=== PATIENT | female | born 1980 | race Caucasian/White ===

== ENCOUNTER 2016-10-22 23:38 | Emergency (ER) | payer OTHER ==
--- NOTE | 2016-10-23 02:04 | ED ORDER SUMMARY ---
..... Patient: RADHA PICKETT OrderSheet [facility] VisitID: [id number] [place] [address] 36y, F Registration Date/Time: 10/22/2016 ORDER SHEET Weight: 95.7 kg (stated) Allergies: Metformin, Flu Virus Vaccine GENERAL ORDERS: EKG - ER Stat (23:56 10/22/2016 DDavis R.N. per protocol) (Ack 23:59 IJurca ER Tech1) (Cancelled: Duplicate Order0:00 DDavis R.N.) Chest 2V Urgent (:56 10/22/2016 PHutchinson DO) (Ack 23:59 IJurca ER Tech1) Music Engraver (Continuous) (:56 10/22/2016 PHutchinson DO) (Ack 23:59 IJurca ER Tech1) (0:00 DDavis R.N.) UA-Culture if indicated Urgent (:56 10/22/2016 PHutchinson DO) (Ack 23:59 IJurca ER Tech1) (1:15 JRomanelli R.N.) (Sent 1:15 IJurca ER Tech1) Cardiac Panel Stat (:56 10/22/2016 PHutchinson DO) (Ack 23:59 IJurca ER Tech1) (0:13 DDavis R.N.) BNP Urgent (:56 10/22/2016 PHutchinson DO) (Ack 23:59 IJurca ER Tech1) (0:13 DDavis R.N.) D-Dimer Urgent (:56 10/22/2016 PHutchinson DO) (Ack 23:59 IJurca ER Tech1) (0:13 DDavis R.N.) Amylase Urgent (:56 10/22/2016 PHutchinson DO) (Ack 23:59 IJurca ER Tech1) (0:13 DDavis R.N.) PT with INR Urgent (:56 10/22/2016 PHutchinson DO) (Ack 23:59 IJurca ER Tech1) (0:13 DDavis R.N.) Urine Urgent (:56 10/22/2016 [facility] DO) (Ack 23:59 IJurca ER Tech1) (1:15 JRomanelli R.N.) (Sent 1:15 IJurca ER Tech1) Urine Drug Screen Urgent (23:56 10/22/2016 [facility] DO) (Ack 23:59 IJurca ER Tech1) (Sent 1:15 IJurca ER Tech1) (1:19 DDavis R.N.) TSH Urgent (23:56 10/22/2016 [facility] DO) (Ack 23:59 IJurca ER Tech1) (0:13 DDavis R.N.) Pulse oximeter (:56 10/22/2016 [facility] DO) (Ack 23:59 IJurca ER Tech1) (0:00 DDavis R.N.) EKG - ER Stat (:56 10/22/2016 [facility]) (23:59 CHategekimana) (Ack 23:59 IJurca ER Tech1) Vitals (:56 10/22/2016 [facility] DO) (Ack 23:59 IJurca ER Tech1) (0:00 DDavis R.N.) [place] Level Urgent (00:10/23/2016 [facility] DO) (0:14 DDavis R.N.) Troponin-I (repeat now) Urgent (01:23 10/23/2016 [facility]) (Ack 1:31 IJurca ER Tech1) (1:50 DDavis R.N.) MEDICATION ORDERS: Aspirin PO 325 mg (NOW) (23:56 10/22/2016 [facility] DO) (0:14 DDavis R.N.) GI Cocktail WHITE PO 30 mL with Lidocaine Viscous Mouth/Throat 15 mL, Maalox Plus Oral 15 mL (NOW) (:56 10/22/2016 [facility] DO) (0:16 DDavis R.N.) Regular Insulin Subcut 8 units (HIGH ALERT MEDICATION, NOW) (01:05 10/23/2016 [facility]) (Ack 1:19 RCollier R.N.) (1:43 DDavis R.N.) IV FLUIDS: IV NS : initial bolus 1000 mL (1000 mL/hr), then 500 mL/hr for X2 (NOW) (23:56 10/22/2016 [facility]) (0:15 Robert Reza) ORDER SHEET NOTES: [Electronically signed by Abbey Rincon R.N. (02:10/23/2016)] [Electronically signed by Thierry Chicas DO (03:41 10/23/2016)] [Electronically locked/signed by Abbey Rincon R.N. (:10/23/2016)]
--- NOTE | 2016-10-23 02:04 | ED CLINICAL REPORT ---
Clinical Report - Physicians/Mid Levels [facility] [address] [place] [address] 10/22/2016 23:39 Patient: RADHA PICKETT Time Seen: 23:48. Arrived- By private vehicle. Historian- patient and family. HISTORY OF PRESENT ILLNESS Chief Complaint: CHEST DISCOMFORT. It is described as dull and it is described as located in the central chest area and radiating to the right upper back (possibly to right arm - states right arm feels numb). This started about 10 hours ago and is still present. It was gradual in onset and has been waxing/waning. Onset during light activity. At its maximum, severity described as moderate. When seen in the E.D., severity described as moderate. Modifying factors. Not worsened by anything. Not relieved by anything. No nausea, vomiting, difficulty breathing or diaphoresis. Similar symptoms previously: None. Recent medical care: The patient was seen recently at another facility in a clinic. Seen for other problems. ( has chronic pelvic pain and DUB - recent pap smear). REVIEW OF SYSTEMS No fever, chills, cough, pedal edema or calf pain. No fainting episodes, headache, sore throat, black stools or difficulty with urination. No skin rash, enlarged lymph nodes or bloody stools. All systems otherwise negative, except as recorded above. PAST HISTORY See nurses notes. Type II diabetes mellitus treated with insulin. 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 No history of aortic disease or pulmonary embolism. Mental illness. ( Chronic pelvic pain and dysfunctional bleeding - scheduled for hysterectomy in the near future ([facility])). Medications: Insulin: Novalog. Wellbutrin Oral. Aristes Oral. Lantus Subcutaneous. Allergies: Flu Virus Vaccine. Metformin. SOCIAL HISTORY Never smoker. No alcohol use or drug use. Residence: [place]. ADDITIONAL NOTES The nursing notes have been reviewed. PHYSICAL EXAM Vital Signs: 10/22/2016 23:49 BP: 133/77. HR: 77. RR: 15. O2 saturation: 100%. Temp: 98.5 F. Pain level now: 8/10. Appearance: Alert. Oriented X3. No acute distress. Eyes: Pupils equal, round and reactive to light. Eyes normal inspection. No scleral icterus or pale conjunctivae. ENT: Pharynx normal. Neck: Normal inspection. Neck supple. CVS: Normal heart rate and rhythm. Heart sounds normal. Pulses normal. Respiratory: No respiratory distress. Breath sounds normal. Chest nontender. Abdomen: Soft and nontender. No mass. Back: Normal external inspection. Skin: Skin warm and dry. Normal skin color. Normal skin turgor. Extremities: Extremities exhibit normal ROM. No calf tenderness. No lower extremity edema. Neuro: Oriented X 3. No motor deficit. No sensory deficit. LABS, X-RAYS, AND EKG EKG: EKG time: (23:58). Normal sinus rhythm. Rate: 75. Normal P waves. Normal CORI. Normal QRS complex. Normal axis. Normal ST and T waves. The study has been interpreted contemporaneously by me. The EKG appears to be a good tracing. Rhythm Strip #1: Normal sinus rhythm. Regular rhythm. Narrow QRS complexes. No ectopy. Chest X-ray: No acute disease. Normal lung markings present. Normal heart size. Mediastinum normal. Great vessels normal. No infiltrate. Views: PA and lateral. Technique: good. The X-rays were interpreted contemporaneously by me. Laboratory Tests: UA-Culture if indicated: (CHELLY: 10/23/2016 01:03) ( MsgRcvd 10/23/2016 01:25) Final results Test Result Flag Units (Reference) URINE COLOR YELLOW URINE APPEARANCE CLEAR URINE GLUCOSE 3+ (NEGATIVE) URINE BILIRUBIN NEGATIVE (NEGATIVE) URINE KETONE NEGATIVE (NEGATIVE) URINE SPECIFIC GRAVITY 1.010 (1.010-1.030) URINE PH 6.0 (5.0-8.0) URINE PROTEIN NEGATIVE (NEGATIVE) URINE UROBILINOGEN 0.2 EU/dL (0.2-1.0) URINE NITRITE NEGATIVE (NEGATIVE) URINE BLOOD NEGATIVE (NEGATIVE) URINE LEUK ESTERASE NEGATIVE (NEGATIVE) URINE RBC 0-1 rbc/hpf (0-1) URINE WBC 0-1 wbc/hpf (0-1) URINE EPITHELIAL CELLS 0-1 EPI/hpf (0-5) URINE BACTERIA NONE SEEN (NONE SEEN) FEW YEAST URINE COMMENT CULTURE INDICATED URINE CULTURES ARE SET-UP BASED ON THE FOLLOWING CRITERIA:POSITIVE NITRITEPOSITIVE LEUKOCYTE ESTERASEGREATER THAN 10 WHITE BLOOD CELLSMODERATE (2+) OR GREATER BACTERIA Urine: (CHELLY: 10/23/2016 01:03) ( [facility] Final results Test Result Flag Units (Reference) URINE NEGATIVE CBC w Diff: (CHELLY: 10/23/2016 00:09) ( [facility] Final results Test Result Flag Units (Reference) WHITE BLOOD COUNT 8.3 K/uL (4.5-11.5) RED BLOOD COUNT 4.51 M/uL (4.00-5.20) HEMOGLOBIN 12.8 gm/dL (12.0-16.0) HEMATOCRIT 38.2 % (36.0-46.0) MEAN CELL VOLUME 85 fL (80-100) MEAN CORPUSCULAR HGB 28 pg (26-34) MEAN CORPUSCULAR HGB CONC 33 g/dL (31-37) RED CELL DISTRIBUTION WIDTH 12.9 % (11.6-14.8) PLATELET COUNT 264 K/uL (150-400) NEUTROPHIL % 59.1 % (50-75) LYMPH % 31.2 % (25-40) MONO % 8.2 % (3-14) EOSINOPHIL % 0.7 % (0-4) BASOPHIL % 0.8 % (0-2) PT with INR: (CHELLY: 10/23/2016 00:09) ( [facility]35) Final results Test Result Flag Units (Reference) INR 0.9 (0.8-1.2) Low Intensity Therapy: INR 1.5-2.0 PT range 18.5-23.1Mod.Intensity Therapy: INR 2.0-3.0 PT range 23.1-31.5High Intensity Therapy: INR 2.5-3.5 PT range 27.4-35.5High Intensity Therapy 2: INR 3.0-4.0 PT range 31.5-39.3 D-DIMER QUANTITATIVE < 0.27 L ug/mLFEU (0.27-0.52) The primary value of this quantitative assay relates toits negative predictive value (i.e. exclusion) of pulmonaryembolism/deep vein thrombosis/DIC.Elevated levels of d-dimer may also occur with:, age, cancer, inflammation, liver disease,post-op, infection, hematoma, coronary disease, peripheralarteriopathy, bleeding disorders and thrombolytic treatment.Results should be correlated with other clinical andradiological data.Testing Methodology: Latex Immunoassay Troponin-I: (CHELLY: 10/23/2016 01:35) ( [facility] 10/23/2016 01:59) Final results Test Result Flag Units (Reference) TROPONIN I <0.05 L ng/mL (0.00-1.5) TROPONIN REFERENCE RANGE:<0.1 NEGATIVE0.1-1.5 INDETERMINANT>1.5 POSITIVE Urine Drug Screen: (CHELLY: 10/23/2016 01:03) ( [facility] 10/[facility]/2016 01:40) Final results Test Result Flag Units (Reference) AMPHETAMINE/METHAMPHETAMINE NEGATIVE (NEGATIVE) BARBITURATE NEGATIVE (NEGATIVE) BENZODIAZEPINE NEGATIVE (NEGATIVE) CANNABINOID NEGATIVE (NEGATIVE) COCAINE NEGATIVE (NEGATIVE) ECSTASY NEGATIVE (NEGATIVE) METHADONE NEGATIVE (NEGATIVE) OPIATE NEGATIVE (NEGATIVE) The urine drug screen is a qualitative screening test fordrug overdose and abuse. All screen results should beconsidered as presumptive.Drugs screened for are as follows:BenzodiazepinesCocaineAmphetamines/MetamphetaminesTHC (Tetrahydrocannabinol)OpiatesBarbituratesEcstasyMethadonePositive results are unconfirmed. For confirmation, notifythe lab for the specimen to be sent to the reference lab.All confirmations must be performed by a differentmethodology.The ingestion of natural herbal and plant productscontaining Ephedra/Ephedra metabolites can produce in urineone or more substances capable of cross reacting withamphetamine/methamphetamine immunoassays. These testsprovide a preliminary result only. A more specificalternative chemical method must be used to obtain aconfirmed analytical result. BNP: (CHELLY: 10/23/2016 00:09) ( MsgRcvd 10/23/2016 00:36) Final results Test Result Flag Units (Reference) B-TYPE NATRIURETIC PEPTIDE 7.1 pg/ml (5-100) Amylase: (CHELLY: 10/23/2016 00:09) ( MsgRcvd 10/23/2016 00:44) Final results Test Result Flag Units (Reference) AMYLASE 25 U/L (25-115) THYROID STIMULATING HORMONE 1.818 uIU/mL (0.34-3.74) CHEM 13 PANEL: (CHELLY: 10/23/2016 00:09) ( [facility]:34) Final results Test Result Flag Units (Reference) GLUCOSE 436 H mg/dL (70-110) BUN 14 mg/dL (7-18) CREATININE 0.7 mg/dL (0.6-1.3) Estimated GFR >60 mL/min Estimated GFR- >60 mL/min Note: Persistent reduction over 3 months in eGFR<60 mL/min/1.73 m2 defines CKD. Patients with eGFR values>=60 mL/min/1.73 m2 may also have CKD if evidence ofpersistent proteinuria. Additional information may be foundat www.kidney.org. SODIUM 133 L mmol/L (136-145) POTASSIUM 5.0 mmol/L (3.5-5.1) CHLORIDE 99 mmol/L (98-107) CARBON DIOXIDE 25 mmol/L (21-32) CALCIUM 9.4 mg/dL (8.5-10.1) TOTAL PROTEIN 7.6 g/dL (6.4-8.2) ALBUMIN 3.5 g/dL (3.3-5.0) BILIRUBIN, TOTAL 0.5 mg/dL (0.0-1.0) ALKALINE PHOSPHATASE 145 H U/L (46-116) AST (SGOT) 25 U/L (15-37) ALT (SGPT) 20 U/L (12-78) MAGNESIUM 1.9 mg/dL (1.8-2.4) CPK 112 U/L (24-260) TROPONIN I <0.05 L ng/mL (0.00-1.5) TROPONIN REFERENCE RANGE:<0.1 NEGATIVE0.1-1.5 INDETERMINANT>1.5 POSITIVE Aristes Level: (CHELLY: 10/23/2016 00:09) ( MsgRcvd 10/23/2016 00:34) Final results Test Result Flag Units (Reference) LITHIUM <0.2 L mmol/L (0.5-1.5) . Pulse Oximetry: 10/22/2016 23:49 O2 saturation: 100%. (FIO2 - room air). Interpretation: normal. PROGRESS AND PROCEDURES Course of Care: GI Cocktail 30 mL white PO given. Normal Saline 1 liter IVPB given. ASA 325 mg PO given. Regular Insulin 8 units subQ given. Normal ECG, CXR, heart monitor and trop I (and repeat trop I) negative despite over 10 hours of continuous chest discomfort. Some improvement with GI cocktail. Most consistent with GI etiology at this point. She is adequately risk stratified for ongoing out pt work up / return for new or worsening symptoms or concerns. Patient/family counseled. Old medical records ordered. (no prior visits to [facility]). Disposition: Discharged. Condition: stable and improved. CLINICAL IMPRESSION Atypical chest pain .12 lead EKG performed. INSTRUCTIONS Rest. Do not work for two days. Avoid alcohol and NSAIDS. Examples of NSAIDS include aspirin, ibuprofen (Advil) and naproxen (Aleve). Avoid fatty, fried/greasy, lactose-containing (such as milk, cheese and ice cream), salty and spicy foods. Drink plenty of fluids. No alcohol until released. Warnings: Further evaluation is necessary in order to recheck abnormal lab, obtain test results, conduct further tests and assess the possibility of serious illness (You may need a treadmill test). It is very important to follow up with a physician. GENERAL WARNINGS: Return or contact your physician immediately if your condition worsens or changes unexpectedly, if not improving as expected, or if other problems arise. Your Current Medications: CONTINUE TAKING THE FOLLOWING MEDICATIONS: Insulin: Novalog*. Lantus Subcutaneous. Aristes Oral. Wellbutrin Oral. Prescription Medications: Prilosec 20 mg capsules: Take 1 capsule orally once daily. Dispense fifteen (15). No refills. Substitution is permissible. OTC Medications: Take aspirin according to label instructions. Available over the counter. (daily dose = 325 mg) Follow-up: Follow up with your doctor [facility] tomorrow. (Electronically signed by Thierry Chicas DO 10/23/2016 3:41)
--- NOTE | 2016-10-23 02:04 | ED CLINICAL REPORT ---
Clinical Report - Physicians/Mid Levels [facility] [address] [place] [address] 10/22/2016 23:39 Patient: RADHA PICKETT Time Seen: 23:48. Arrived- By private vehicle. Historian- patient and family. HISTORY OF PRESENT ILLNESS Chief Complaint: CHEST DISCOMFORT. It is described as dull and it is described as located in the central chest area and radiating to the right upper back (possibly to right arm - states right arm feels numb). This started about 10 hours ago and is still present. It was gradual in onset and has been waxing/waning. Onset during light activity. At its maximum, severity described as moderate. When seen in the E.D., severity described as moderate. Modifying factors. Not worsened by anything. Not relieved by anything. No nausea, vomiting, difficulty breathing or diaphoresis. Similar symptoms previously: None. Recent medical care: The patient was seen recently at another facility in a clinic. Seen for other problems. ( has chronic pelvic pain and DUB - recent pap smear). REVIEW OF SYSTEMS No fever, chills, cough, pedal edema or calf pain. No fainting episodes, headache, sore throat, black stools or difficulty with urination. No skin rash, enlarged lymph nodes or bloody stools. All systems otherwise negative, except as recorded above. PAST HISTORY See nurses notes. Type II diabetes mellitus treated with insulin. 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 No history of aortic disease or pulmonary embolism. Mental illness. ( Chronic pelvic pain and dysfunctional bleeding - scheduled for hysterectomy in the near future ([facility])). Medications: Insulin: Novalog. Wellbutrin Oral. [place] Oral. Lantus Subcutaneous. Allergies: Flu Virus Vaccine. Metformin. SOCIAL HISTORY Never smoker. No alcohol use or drug use. Residence: [place] Visiting locally. ADDITIONAL NOTES The nursing notes have been reviewed. PHYSICAL EXAM Vital Signs: 10/22/2016 23:49 BP: 133/77. HR: 77. RR: 15. O2 saturation: 100%. Temp: 98.5 F. Pain level now: 8/10. Appearance: Alert. Oriented X3. No acute distress. Eyes: Pupils equal, round and reactive to light. Eyes normal inspection. No scleral icterus or pale conjunctivae. ENT: Pharynx normal. Neck: Normal inspection. Neck supple. CVS: Normal heart rate and rhythm. Heart sounds normal. Pulses normal. Respiratory: No respiratory distress. Breath sounds normal. Chest nontender. Abdomen: Soft and nontender. No mass. Back: Normal external inspection. Skin: Skin warm and dry. Normal skin color. Normal skin turgor. Extremities: Extremities exhibit normal ROM. No calf tenderness. No lower extremity edema. Neuro: Oriented X 3. No motor deficit. No sensory deficit. LABS, X-RAYS, AND EKG EKG: EKG time: (23:58). Normal sinus rhythm. Rate: 75. Normal P waves. Normal CORI. Normal QRS complex. Normal axis. Normal ST and T waves. The study has been interpreted contemporaneously by me. The EKG appears to be a good tracing. Rhythm Strip #1: Normal sinus rhythm. Regular rhythm. Narrow QRS complexes. No ectopy. Chest X-ray: No acute disease. Normal lung markings present. Normal heart size. Mediastinum normal. Great vessels normal. No infiltrate. Views: PA and lateral. Technique: good. The X-rays were interpreted contemporaneously by me. Laboratory Tests: UA-Culture if indicated: (CHELLY: 10/23/2016 01:03) ( MsgRcvd 10/23/2016 01:25) Final results Test Result Flag Units (Reference) URINE COLOR YELLOW URINE APPEARANCE CLEAR URINE GLUCOSE 3+ (NEGATIVE) URINE BILIRUBIN NEGATIVE (NEGATIVE) URINE KETONE NEGATIVE (NEGATIVE) URINE SPECIFIC GRAVITY 1.010 (1.010-1.030) URINE PH 6.0 (5.0-8.0) URINE PROTEIN NEGATIVE (NEGATIVE) URINE UROBILINOGEN 0.2 EU/dL (0.2-1.0) URINE NITRITE NEGATIVE (NEGATIVE) URINE BLOOD NEGATIVE (NEGATIVE) URINE LEUK ESTERASE NEGATIVE (NEGATIVE) URINE RBC 0-1 rbc/hpf (0-1) URINE WBC 0-1 wbc/hpf (0-1) URINE EPITHELIAL CELLS 0-1 EPI/hpf (0-5) URINE BACTERIA NONE SEEN (NONE SEEN) FEW YEAST URINE COMMENT CULTURE INDICATED URINE CULTURES ARE SET-UP BASED ON THE FOLLOWING CRITERIA:POSITIVE NITRITEPOSITIVE LEUKOCYTE ESTERASEGREATER THAN 10 WHITE BLOOD CELLSMODERATE (2+) OR GREATER BACTERIA Urine: (CHELLY: 10/23/2016 01:03) ( [facility] 10/23/2016 01:20) Final results Test Result Flag Units (Reference) URINE NEGATIVE CBC w Diff: (CHELLY: 10/23/2016 00:09) ( [facility] 10/23/2016 00:20) Final results Test Result Flag Units (Reference) WHITE BLOOD COUNT 8.3 K/uL (4.5-11.5) RED BLOOD COUNT 4.51 M/uL (4.00-5.20) HEMOGLOBIN 12.8 gm/dL (12.0-16.0) HEMATOCRIT 38.2 % (36.0-46.0) MEAN CELL VOLUME 85 fL (80-100) MEAN CORPUSCULAR HGB 28 pg (26-34) MEAN CORPUSCULAR HGB CONC 33 g/dL (31-37) RED CELL DISTRIBUTION WIDTH 12.9 % (11.6-14.8) PLATELET COUNT 264 K/uL (150-400) NEUTROPHIL % 59.1 % (50-75) LYMPH % 31.2 % (25-40) MONO % 8.2 % (3-14) EOSINOPHIL % 0.7 % (0-4) BASOPHIL % 0.8 % (0-2) PT with INR: (CHELLY: 10/23/2016 00:09) ( [facility] 10/23/2016 00:35) Final results Test Result Flag Units (Reference) INR 0.9 (0.8-1.2) Low Intensity Therapy: INR 1.5-2.0 PT range 18.5-23.1Mod.Intensity Therapy: INR 2.0-3.0 PT range 23.1-31.5High Intensity Therapy: INR 2.5-3.5 PT range 27.4-35.5High Intensity Therapy 2: INR 3.0-4.0 PT range 31.5-39.3 D-DIMER QUANTITATIVE < 0.27 L ug/mLFEU (0.27-0.52) The primary value of this quantitative assay relates toits negative predictive value (i.e. exclusion) of pulmonaryembolism/deep vein thrombosis/DIC.Elevated levels of d-dimer may also occur with:, age, cancer, inflammation, liver disease,post-op, infection, hematoma, coronary disease, peripheralarteriopathy, bleeding disorders and thrombolytic treatment.Results should be correlated with other clinical andradiological data.Testing Methodology: Latex Immunoassay Troponin-I: (CHELLY: 10/23/2016 01:35) ( [facility] 10/23/2016 01:59) Final results Test Result Flag Units (Reference) TROPONIN I <0.05 L ng/mL (0.00-1.5) TROPONIN REFERENCE RANGE:<0.1 NEGATIVE0.1-1.5 INDETERMINANT>1.5 POSITIVE Urine Drug Screen: (CHELLY: 10/23/2016 01:03) ( [facility] 10/23/2016 01:40) Final results Test Result Flag Units (Reference) AMPHETAMINE/METHAMPHETAMINE NEGATIVE (NEGATIVE) BARBITURATE NEGATIVE (NEGATIVE) BENZODIAZEPINE NEGATIVE (NEGATIVE) CANNABINOID NEGATIVE (NEGATIVE) COCAINE NEGATIVE (NEGATIVE) ECSTASY NEGATIVE (NEGATIVE) METHADONE NEGATIVE (NEGATIVE) OPIATE NEGATIVE (NEGATIVE) The urine drug screen is a qualitative screening test fordrug overdose and abuse. All screen results should beconsidered as presumptive.Drugs screened for are as follows:BenzodiazepinesCocaineAmphetamines/MetamphetaminesTHC (Tetrahydrocannabinol)OpiatesBarbituratesEcstasyMethadonePositive results are unconfirmed. For confirmation, notifythe lab for the specimen to be sent to the reference lab.All confirmations must be performed by a differentmethodology.The ingestion of natural herbal and plant productscontaining Ephedra/Ephedra metabolites can produce in urineone or more substances capable of cross reacting withamphetamine/methamphetamine immunoassays. These testsprovide a preliminary result only. A more specificalternative chemical method must be used to obtain aconfirmed analytical result. BNP: (CHELLY: 10/23/2016 00:09) ( MsgRcvd 10/23/2016 00:36) Final results Test Result Flag Units (Reference) B-TYPE NATRIURETIC PEPTIDE 7.1 pg/ml (5-100) Amylase: (CHELLY: 10/23/2016 00:09) ( MsgRcvd 10/23/2016 00:44) Final results Test Result Flag Units (Reference) AMYLASE 25 U/L (25-115) THYROID STIMULATING HORMONE 1.818 uIU/mL (0.34-3.74) CHEM 13 PANEL: (CHELLY: 10/23/2016 00:09) ( [facility] 10/23/2016 00:34) Final results Test Result Flag Units (Reference) GLUCOSE 436 H mg/dL (70-110) BUN 14 mg/dL (7-18) CREATININE 0.7 mg/dL (0.6-1.3) Estimated GFR >60 mL/min Estimated GFR- >60 mL/min Note: Persistent reduction over 3 months in eGFR<60 mL/min/1.73 m2 defines CKD. Patients with eGFR values>=60 mL/min/1.73 m2 may also have CKD if evidence ofpersistent proteinuria. Additional information may be foundat www.kidney.org. SODIUM 133 L mmol/L (136-145) POTASSIUM 5.0 mmol/L (3.5-5.1) CHLORIDE 99 mmol/L (98-107) CARBON DIOXIDE 25 mmol/L (21-32) CALCIUM 9.4 mg/dL (8.5-10.1) TOTAL PROTEIN 7.6 g/dL (6.4-8.2) ALBUMIN 3.5 g/dL (3.3-5.0) BILIRUBIN, TOTAL 0.5 mg/dL (0.0-1.0) ALKALINE PHOSPHATASE 145 H U/L (46-116) AST (SGOT) 25 U/L (15-37) ALT (SGPT) 20 U/L (12-78) MAGNESIUM 1.9 mg/dL (1.8-2.4) CPK 112 U/L (24-260) TROPONIN I <0.05 L ng/mL (0.00-1.5) TROPONIN REFERENCE RANGE:<0.1 NEGATIVE0.1-1.5 INDETERMINANT>1.5 POSITIVE [place] Level: (CHELLY: 10/23/2016 00:09) ( MsgRcvd 10/23/2016 00:34) Final results Test Result Flag Units (Reference) LITHIUM <0.2 L mmol/L (0.5-1.5) . Pulse Oximetry: 10/22/2016 23:49 O2 saturation: 100%. (FIO2 - room air). Interpretation: normal. PROGRESS AND PROCEDURES Course of Care: GI Cocktail 30 mL white PO given. Normal Saline 1 liter IVPB given. ASA 325 mg PO given. Regular Insulin 8 units subQ given. Normal ECG, CXR, heart monitor and trop I (and repeat trop I) negative despite over 10 hours of continuous chest discomfort. Some improvement with GI cocktail. Most consistent with GI etiology at this point. She is adequately risk stratified for ongoing out pt work up / return for new or worsening symptoms or concerns. Patient/family counseled. Old medical records ordered. (no prior visits to [facility] ED). Disposition: Discharged. Condition: stable and improved. CLINICAL IMPRESSION Atypical chest pain .12 lead EKG performed. INSTRUCTIONS Rest. Do not work for two days. Avoid alcohol and NSAIDS. Examples of NSAIDS include aspirin, ibuprofen (Advil) and naproxen (Aleve). Avoid fatty, fried/greasy, lactose-containing (such as milk, cheese and ice cream), salty and spicy foods. Drink plenty of fluids. No alcohol until released. Warnings: Further evaluation is necessary in order to recheck abnormal lab, obtain test results, conduct further tests and assess the possibility of serious illness (You may need a treadmill test). It is very important to follow up with a physician. GENERAL WARNINGS: Return or contact your physician immediately if your condition worsens or changes unexpectedly, if not improving as expected, or if other problems arise. Your Current Medications: CONTINUE TAKING THE FOLLOWING MEDICATIONS: Insulin: Novalog*. Lantus Subcutaneous. [place] Oral. Wellbutrin Oral. Prescription Medications: Prilosec 20 mg capsules: Take 1 capsule orally once daily. Dispense fifteen (15). No refills. Substitution is permissible. OTC Medications: Take aspirin according to label instructions. Available over the counter. (daily dose = 325 mg) Follow-up: Follow up with your doctor [facility] tomorrow. (Electronically signed by Thierry Chicas DO 10/23/2016 3:41)
--- NOTE | 2016-10-23 02:04 | ED ORDER SUMMARY ---
..... Patient: RADHA PICKETT OrderSheet [facility] VisitID: [id number] [place] [address] 36y, F Registration Date/Time: 10/22/2016 ORDER SHEET Weight: 95.7 kg (stated) Allergies: Metformin, Flu Virus Vaccine GENERAL ORDERS: EKG - ER Stat (23:56 10/22/2016 DDavis R.N. per protocol) (Ack 23:59 IJurca ER Tech1) (Cancelled: Duplicate Order0:00 DDavis R.N.) Chest 2V Urgent (:56 10/22/2016 PHutchinson DO) (Ack 23:59 IJurca ER Tech1) [employer] Med[employer] Commissioner (Continuous) (:56 10/22/2016 PHutchinson DO) (Ack 23:59 IJurca ER Tech1) (0:00 DDavis R.N.) UA-Culture if indicated Urgent (:56 10/22/2016 PHutchinson DO) (Ack 23:59 IJurca ER Tech1) (1:15 JRomanelli R.N.) (Sent 1:15 IJurca ER Tech1) Cardiac Panel Stat (:56 10/22/2016 PHutchinson DO) (Ack 23:59 IJurca ER Tech1) (0:13 DDavis R.N.) BNP Urgent (:56 10/22/2016 PHutchinson DO) (Ack 23:59 IJurca ER Tech1) (0:13 DDavis R.N.) D-Dimer Urgent (:56 10/22/2016 PHutchinson DO) (Ack 23:59 IJurca ER Tech1) (0:13 DDavis R.N.) Amylase Urgent (:56 10/22/2016 PHutchinson DO) (Ack 23:59 IJurca ER Tech1) (0:13 DDavis R.N.) PT with INR Urgent (:56 10/22/2016 PHutchinson DO) (Ack 23:59 IJurca ER Tech1) (0:13 DDavis R.N.) Urine Urgent (:56 10/22/2016 [facility] DO) (Ack 23:59 IJurca ER Tech1) (1:15 JRomanelli R.N.) (Sent 1:15 IJurca ER Tech1) Urine Drug Screen Urgent (23:56 10/22/2016 [facility] DO) (Ack 23:59 IJurca ER Tech1) (Sent 1:15 IJurca ER Tech1) (1:19 DDavis R.N.) TSH Urgent (23:56 10/22/2016 [facility] DO) (Ack 23:59 IJurca ER Tech1) (0:13 DDavis R.N.) Pulse oximeter (:56 10/22/2016 [facility] DO) (Ack 23:59 IJurca ER Tech1) (0:00 DDavis R.N.) EKG - ER Stat (:56 10/22/2016 [facility]) (23:59 CHategekimana) (Ack 23:59 IJurca ER Tech1) Vitals (:56 10/22/2016 [facility] DO) (Ack 23:59 IJurca ER Tech1) (0:00 DDavis R.N.) [place] Level Urgent (00:10/23/2016 [facility] DO) (0:14 DDavis R.N.) Troponin-I (repeat now) Urgent (01:23 10/23/2016 [facility]) (Ack 1:31 IJurca ER Tech1) (1:50 DDavis R.N.) MEDICATION ORDERS: Aspirin PO 325 mg (NOW) (23:56 10/22/2016 [facility] DO) (0:14 DDavis R.N.) GI Cocktail WHITE PO 30 mL with Lidocaine Viscous Mouth/Throat 15 mL, Maalox Plus Oral 15 mL (NOW) (:56 10/22/2016 [facility] DO) (0:16 DDavis R.N.) Regular Insulin Subcut 8 units (HIGH ALERT MEDICATION, NOW) (01:05 10/23/2016 [facility]) (Ack 1:19 RCollier R.N.) (1:43 DDavis R.N.) IV FLUIDS: IV NS : initial bolus 1000 mL (1000 mL/hr), then 500 mL/hr for X2 (NOW) (23:56 10/22/2016 [facility]) (0:15 Robert Reza) ORDER SHEET NOTES: [Electronically signed by Abbey Rincon R.N. (02:10/23/2016)] [Electronically signed by Thierry Chicas DO (03:41 10/23/2016)] [Electronically locked/signed by Abbey Rincon R.N. (:10/23/2016)]
--- NOTE | 2016-10-23 02:04 | ED NURSING NOTES ---
Clinical Report - Nurses [facility] [place] [address] 10/22/2016 23:39 [id number] Triage time 23:49. Acuity: LEVEL 3. Chief Complaint: CHEST PAIN and RIGHT ARM PAIN. Alert. ALENA COMA SCORE: [place] Coma Scale: 15- eyes open spontaneously (4); best verbal response- oriented x 4 (5); best motor response- obeys commands (6). --23:53 Toño Chauhan R.N. 23:49 10/22/16. BP: 133/77. HR: 77. RR: 15 (unlabored). O2 saturation: 100% on room air. Temp: 98.5 F (oral). Pain level now: 02/26. --23:53 Toño Chauhan R.N. Weight: 95.7 kg stated. Height/Length: 64 inches Per Patient. BMI: 36.2. --23:53 Toño Chauhan R.N. Medications Insulin: Novalog. --00:00 Toño Chauhan R.N. Lantus Subcutaneous. --23:59 Toño Chauhan R.N. [place] Oral. --23:59 Toño Chauhan R.N. Wellbutrin Oral. --23:59 Toño Chauhan R.N. Allergies Metformin. --23:58 Toño Chauhan R.N. Flu Virus Vaccine. --23:58 Toño Chauhan R.N. History Arrived by private vehicle. Historian: patient. Accompanied by friend. This started today. Onset. (1430 today). SOCIAL HX: Never smoker. No alcohol use or drug use. FALL RISK ASSESSMENT: Fall risk assessment completed. No fall risk identified. NUTRITIONAL RISK ASSESSMENT: The nutritional risk assessment revealed no deficiencies. FUNCTIONAL ASSESSMENT: Functional assessment: no impairments noted. LEARNING NEEDS ASSESSMENT: The learning needs assessment revealed no barriers. SKIN INTEGRITY ASSESSMENT: Skin integrity risk assessment completed. No skin integrity risk identified. --23:53 Tien, Toño, R.N. PROBLEMS: Mental Illness. Diabetes Mellitus. --23:58 Toño Chauhan R.N. ADDITIONAL SURGERIES: . --00:00 Toño Chauhan R.N. Interventions ID band on patient. To treatment room. --23:53 Toño Chauhan R.N. PHYSICAL ASSESSMENT Ambulatory to room. GENERAL / NEURO / PSYCH: Alert. Oriented X 4. Appears anxious. HEENT: Mucous membranes are pink. RESPIRATORY: Respirations not labored. Chest nontender. Breath sounds within normal limits. CVS: Normal sinus rhythm noted. Heart sounds within normal limits. GI / : Abdomen soft and nontender. SKIN: Skin is warm and dry. --23:54 Toño Chauhan R.N. RESPIRATORY: Breath sounds within normal limits. CVS: Heart sounds within normal limits. --23:55 Toño Chauhan R.N. NURSING PROGRESS NOTES playground monitor, pulse oximeter and NIBP monitor placed on patient. Patient gowned. Head of bed elevated. Patient ready for evaluation- chart flagged. ( physician with patient). --23:54 Toño Chauhan R.N. 00:02 10/23/2016 One (1) unsuccessful IV access attempt including the right hand. Applied bandage and manual pressure (pt states "you only get one try", second RN brought in for additional attempts.). --00:07 Abbey Rincon R.N. EKG time: (2358 PM). EKG was ordered, performed by a tech and shown to the ED physician. --00:14 Noa Martinez 00:05 10/23/2016 Site #1 started via IV in the left antecubital space with an 20g angiocath, with aseptic technique and good blood return; two attempts. Blood drawn: rainbow set. Labeled in the presence of the patient and sent to the lab. Saline lock flushed with 10 mL saline. --00:15 Toño Chauhan R.N. 00:05 10/23/2016 Started bag #1 1000 mL IV Fluids IV NS (Saline); at 1000 mL/hr over 1 hour(s) via site #1. Allergies verified and confirmed 5 rights. IV patency established site checked: no pain, redness, or swelling flushed thoroughly pre- and post-medication administration. Completed per protocol (Started by Chivo Finn RN). --00:15 Toño Chauhan R.N. 00:09 10/23/2016 Aspirin PO Tablets 325 mg given. Allergies verified and confirmed 5 rights. --00:14 Toño Chauhan R.N. 00:11 10/23/2016 GI COCKTAIL WHITE (Simethicone) PO Oral Suspension 30 mL given. Allergies verified and confirmed 5 rights. --00:16 Toño Chauhan R.N. 00:28 10/23/2016 Site #2 started via IV in the right forearm with an 20g angiocath, with aseptic technique and good blood return; one attempt. Blood drawn: rainbow set. Saline lock flushed with 10 mL saline (start by Lelo Small RN). --00:43 Chivo Herrera R.N. 00:28 10/23/2016 Site #1 removed. Catheter intact. Manual pressure, bandaid and bandage applied (IV site D/C'd because it was positional and flowed only intermittently). --00:50 Chivo Herrera R.N. 00:29 10/23/2016 Started bag #1 1000 mL IV Fluids IV NS (Saline); at 999 mL/hr via site #2 via IV pump. Allergies verified and confirmed 5 rights. IV patency established. IV site checked: no pain, redness, or swelling. IV flushed thoroughly pre- and post-medication administration. --00:44 Chivo Herrera R.N. 01:05 10/23/2016 IV Fluids IV NS Discontinued: bag #1 completed. Total amount infused: 1000 mL. IV patency established. IV site checked: no pain, redness, or swelling. IV flushed thoroughly. --02:23 Abbey Rincon R.N. 01:28 10/23/2016 Regular Insulin Subcutaneous 8 unit given. Given in the right abdomen. Allergies verified and confirmed 5 rights. --01:43 Toño Chauhan R.N. DISPOSITION / DISCHARGE 02:15 10/23/2016 Site #2 removed upon discharge. Catheter intact. Manual pressure and bandage applied. --02:24 Abbey Rincon R.N. Condition at departure: improved and stable. No learning barriers present. Discharge instructions provided and reviewed with the patient. Reviewed medication(s) side effects, precautions, dosing and course information. Prescription(s) given to the patient. Patient verbalized understanding. Written instructions provided in Georgian. The patient was discharged home and accompanied by family. She left the Emergency Department ambulatory and via private vehicle. Family member driving. --02:25 Abbey Rincon R.N. 02:16 10/23/16. BP: 120/65. HR: 86. RR: 16. O2 saturation: 96% on room air. Temp: deferred. Lima-Miranda pain scale: 10. --02:25 Abbey Rincon R.N. Locked/Released at 10/23/2016 2:25 by Abbey Rincon R.N.
--- NOTE | 2016-10-23 03:42 | ED MAR SUMMARY ---
..... Medication Administration Record [facility] [address] [place] [place] [address] Patient: RADHA PICKETT Visit ID: [id number] 36y, F Weight: 95.7 kg Height/Length: 64 in BMI: 36.2 ALLERGIES: Flu Virus Vaccine, Metformin Start 00:10/23/2016 Toño Chauhan R.N., Stop 01:10/23/2016 Abbey Rincon R.N. Medication Administered: IV NS (SALINE), Dose: IV Fluids over 1 hour(s), Rate: 1000 mL/hr, Dispensed: 1000 mL bag, Site: #1 left AC. Medication Ordered: IV NS : initial bolus 1000 mL (1000 mL/hr), then 500 mL/hr for X2 (NOW). Given 00:09 10/23/2016 Toño Chauhan R.N. Medication Administered: ASPIRIN [PO], Dose: 325 mg Tablets PO. Medication Ordered: Aspirin PO 325 mg (NOW). Given 00:10/23/2016 Toño Chauhan R.N. Medication Administered: GI COCKTAIL WHITE [PO] (SIMETHICONE), Dose: 30 mL Oral Suspension PO. Medication Ordered: GI Cocktail WHITE PO 30 mL with Lidocaine Viscous Mouth/Throat 15 mL, Maalox Plus Oral 15 mL (NOW). Start 00:10/23/2016 Chivo Herrera RMary Alice Medication Administered: IV NS (SALINE), Dose: IV Fluids, Rate: 999 mL/hr, Dispensed: 1000 mL bag, Site: #2 right forearm. Medication Ordered: IV NS : initial bolus 1000 mL (1000 mL/hr), then 500 mL/hr for X2 (NOW). Given 01:10/23/2016 Toño Chauhan R.N. Medication Administered: REGULAR INSULIN [SUBCUTANEOUS], Dose: 8 unit Subcutaneous. Medication Ordered: Regular Insulin Subcut 8 units (HIGH ALERT MEDICATION, NOW).
--- NOTE | 2016-10-23 03:42 | ED MED RECONCILIATION SUMMARY ---
Patient: RADHA PICKETT Medication Reconciliation Report [facility] VisitID: [id number] [address] [place] [address] 36y, F Registration Date/Time: 10/22/2016 Weight: 95.7 kg Height/Length: 64 in. BMI: 36.2 ALLERGIES: Flu Virus Vaccine, Metformin The patient's Home Medications are listed below: CONTINUE TAKING THE FOLLOWING MEDICATIONS: Insulin: Novalog Lantus Subcutaneous [place] Oral Wellbutrin Oral The source(s) of the original Home Medication information: Not obtained. The following Medications were given to the patient in the Emergency Department: Aspirin [PO] PO 325 mg, administered: 10/23/2016 12:09:00 AM IV NS IV Fluids bolus 0, then 1000 mL/hr, administered: 10/23/2016 12:05:00 AM GI COCKTAIL WHITE [PO] PO 30 mL, administered: 10/23/2016 12:11:00 AM IV NS IV Fluids bolus 0, then 999 mL/hr, administered: 10/23/2016 12:29:00 AM Regular Insulin [Subcutaneous] Subcutaneous 8 unit, administered: 10/23/2016 1:28:00 AM The following Medications were prescribed to the patient: Take aspirin according to label instructions. Available over the counter.(daily dose = 325 mg) -- Thierry Chicas DO Prilosec 20 mg capsules: Take 1 capsule orally once daily. Dispense fifteen (15). No refills. Substitution is permissible. -- Thierry Chicas DO
--- NOTE | 2016-10-23 03:42 | ED MED RECONCILIATION SUMMARY ---
Patient: RADHA PICKETT Medication Reconciliation Report [facility] VisitID: [id number] [address] [place] [address] 36y, F Registration Date/Time: 10/22/2016 Weight: 95.7 kg Height/Length: 64 in. BMI: 36.2 ALLERGIES: Flu Virus Vaccine, Metformin The patient's Home Medications are listed below: CONTINUE TAKING THE FOLLOWING MEDICATIONS: Insulin: Novalog Lantus Subcutaneous [place] Oral Wellbutrin Oral The source(s) of the original Home Medication information: Not obtained. The following Medications were given to the patient in the Emergency Department: Aspirin [PO] PO 325 mg, administered: 10/23/2016 12:09:00 AM IV NS IV Fluids bolus 0, then 1000 mL/hr, administered: 10/23/2016 12:05:00 AM GI COCKTAIL WHITE [PO] PO 30 mL, administered: 10/23/2016 12:11:00 AM IV NS IV Fluids bolus 0, then 999 mL/hr, administered: 10/23/2016 12:29:00 AM Regular Insulin [Subcutaneous] Subcutaneous 8 unit, administered: 10/23/2016 1:28:00 AM The following Medications were prescribed to the patient: Take aspirin according to label instructions. Available over the counter.(daily dose = 325 mg) -- Thierry Chicas DO Prilosec 20 mg capsules: Take 1 capsule orally once daily. Dispense fifteen (15). No refills. Substitution is permissible. -- Thierry Chicas DO
--- NOTE | 2016-10-23 03:42 | ED DISCHARGE INSTRUCTIONS ---
Patient: RADHA PICKETT General Instructions [facility] VisitID: [id number] [place] [address] 36y, F Registration Date/Time: 10/22/2016 Atypical chest pain .12 lead EKG performed. INSTRUCTIONS Rest. Do not work for two days. Avoid alcohol and NSAIDS. Examples of NSAIDS include aspirin, ibuprofen (Advil) and naproxen (Aleve). Avoid fatty, fried/greasy, lactose-containing (such as milk, cheese and ice cream), salty and spicy foods. Drink plenty of fluids. No alcohol until released. Warnings: Further evaluation is necessary in order to recheck abnormal lab, obtain test results, conduct further tests and assess the possibility of serious illness (You may need a treadmill test). It is very important to follow up with a physician. GENERAL WARNINGS: Return or contact your physician immediately if your condition worsens or changes unexpectedly, if not improving as expected, or if other problems arise. Your Current Medications: CONTINUE TAKING THE FOLLOWING MEDICATIONS: Insulin: Novalog*. Lantus Subcutaneous. [place] Oral. Wellbutrin Oral. Prescription Medications: Prilosec 20 mg capsules: Take 1 capsule orally once daily. Dispense fifteen (15). No refills. Substitution is permissible. OTC Medications: Take aspirin according to label instructions. Available over the counter. (daily dose = 325 mg) Follow-up: Follow up with your doctor [facility] tomorrow. ADDITIONAL INFORMATION Chest Pain, Uncertain Cause Chest pain can happen for a number of reasons. Sometimes the cause can not be determined. If yourcondition does not seem serious, and your pain does not appear to be coming from your heart, your doctor may recommend watching it closely. Sometimes the signs of a serious problem take more time to appear. Therefore, watch for the warning signs listed below. Home care After your visit, follow these recommendations: Rest today and avoid strenuous activity. Take any prescribed medicine as directed. Follow-up care Follow up with your doctor or this facility as instructed or if you do not start to feel better within 24 hours. Call 911 Get immediate medical attention if any of the following occur: A change in the type of pain: if it feels different, becomes more severe, lasts longer, or begins to spread into your shoulder, arm, neck, jaw or back Shortness of breath or increased pain with breathing Weakness, dizziness, or fainting Rapid heart beat Get prompt medical attention Call your doctor right away if any of the following occur: Cough with dark colored sputum (phlegm) or blood Fever of 100.4F(38C) or higher, or as directed by your health care provider Swelling, pain or redness in one leg Omeprazole Magnesium Gastro-resistant tablet What is this medicine? OMEPRAZOLE (oh ME pray zol) prevents the production of acid in the stomach. It is used to treat the symptoms of heartburn. You can buy this medicine without a prescription. This product is not for long-term use, unless otherwise directed by your doctor or health rn complex care. How should I use this medicine? Take this medicine by mouth. Follow the directions on the product label. If you are taking this medicine without a prescription, take one tablet every day. Do not use for longer than 14 days or repeat a course of treatment more often than every 4 months unless directed by a doctor or healthcare professional. Take your dose at regular intervals every 24 hours. Swallow the tablet whole with a drink of water. Do not crush, break or chew. This medicine works best if taken on an empty stomach 30 minutes before breakfast. If you are using this medicine with the prescription of your doctor or healthcare professional, follow the directions you were given. Do not take your medicine more often than directed. Talk to your aerial erector regarding the use of this medicine in children. Special care may be needed. What side effects may I notice from receiving this medicine? Side effects that you should report to your doctor or health rn complex care as soon as possible: allergic reactions like skin rash, itching or hives, swelling of the face, lips, or tongue bone, muscle or joint pain breathing problems chest pain or chest tightness dark yellow or brown urine diarrhea dizziness fast, irregular heartbeat feeling faint or lightheaded fever or sore throat muscle spasm palpitations redness, blistering, peeling or loosening of the skin, including inside the mouth seizures tremors unusual bleeding or bruising unusually weak or tired yellowing of the eyes or skin Side effects that usually do not require medical attention (Report these to your doctor or health rn complex care if they continue or are bothersome.): constipation dry mouth headache loose stools nausea What may interact with this medicine? Do not take this medicine with any of the following medications: atazanavir clopidogrel nelfinavir This medicine may also interact with the following medications: ampicillin certain medicines for anxiety or sleep certain medicines that treat or prevent blood clots like warfarin cyclosporine diazepam digoxin disulfiram iron salts phenytoin prescription medicine for fungal or yeast infection like itraconazole, ketoconazole, voriconazole saquinavir tacrolimus What if I miss a dose? If you miss a dose, take it as soon as you can. If it is almost time for your next dose, take only that dose. Do not take double or extra doses. Where should I keep my medicine? Keep out of the reach of children. Store at room temperature between 20 and 25 degrees C (68 and 77 degrees F). Protect from light and moisture. Throw away any unused medicine after the expiration date. What should I tell my health care provider before I take this medicine? They need to know if you have any of these conditions: black or bloody stools chest pain difficulty swallowing have had heartburn for over 3 months have heartburn with dizziness, lightheadedness or sweating liver disease stomach pain unexplained weight loss vomiting with blood wheezing an unusual or allergic reaction to omeprazole, other medicines, foods, dyes, or preservatives or trying to get breast-feeding What should I watch for while using this medicine? It can take several days before your heartburn gets better. Check with your doctor or health rn complex care if your condition does not start to get better, or if it gets worse. Do not treat diarrhea with over the counter products. Contact your doctor if you have diarrhea that lasts more than 2 days or if it is severe and watery. Do not treat yourself for heartburn with this medicine for more than 14 days in a row. You should only use this medicine for a 2-week treatment period once every 4 months. If your symptoms return shortly after your therapy is complete, or within the 4 month time frame, call your doctor or health rn complex care. You have been given the following additional information: Chest Pain, Uncertain Cause Omeprazole Magnesium Gastro-resistant tablet Rest. Do not work for two days. (Electronically signed by Thierry Chicas DO 10/23/2016 3:41)
--- NOTE | 2016-10-23 03:42 | ED MAR SUMMARY ---
..... Medication Administration Record [facility] [address] [place] [address] Patient: RADHA PICKETT Visit ID: [id number] 36y, F Weight: 95.7 kg Height/Length: 64 in BMI: 36.2 ALLERGIES: Flu Virus Vaccine, Metformin Start 00:10/23/2016 Toño Chauhan R.N., Stop 01:10/23/2016 Abbey Rincon R.N. Medication Administered: IV NS (SALINE), Dose: IV Fluids over 1 hour(s), Rate: 1000 mL/hr, Dispensed: 1000 mL bag, Site: #1 left AC. Medication Ordered: IV NS : initial bolus 1000 mL (1000 mL/hr), then 500 mL/hr for X2 (NOW). Given 00:09 10/23/2016 Toño Chauhan R.N. Medication Administered: ASPIRIN [PO], Dose: 325 mg Tablets PO. Medication Ordered: Aspirin PO 325 mg (NOW). Given 00:10/23/2016 Toño Chauhan R.N. Medication Administered: GI COCKTAIL WHITE [PO] (SIMETHICONE), Dose: 30 mL Oral Suspension PO. Medication Ordered: GI Cocktail WHITE PO 30 mL with Lidocaine Viscous Mouth/Throat 15 mL, Maalox Plus Oral 15 mL (NOW). Start 00:10/23/2016 Chivo Herrera RMary Alice Medication Administered: IV NS (SALINE), Dose: IV Fluids, Rate: 999 mL/hr, Dispensed: 1000 mL bag, Site: #2 right forearm. Medication Ordered: IV NS : initial bolus 1000 mL (1000 mL/hr), then 500 mL/hr for X2 (NOW). Given 01:10/23/2016 Toño Chauhan R.N. Medication Administered: REGULAR INSULIN [SUBCUTANEOUS], Dose: 8 unit Subcutaneous. Medication Ordered: Regular Insulin Subcut 8 units (HIGH ALERT MEDICATION, NOW).
--- NOTE | 2016-10-23 03:42 | ED DISCHARGE INSTRUCTIONS ---
Patient: RADHA PICKETT General Instructions [facility] VisitID: [id number] [place] [address] 36y, F Registration Date/Time: 10/22/2016 Atypical chest pain .12 lead EKG performed. INSTRUCTIONS Rest. Do not work for two days. Avoid alcohol and NSAIDS. Examples of NSAIDS include aspirin, ibuprofen (Advil) and naproxen (Aleve). Avoid fatty, fried/greasy, lactose-containing (such as milk, cheese and ice cream), salty and spicy foods. Drink plenty of fluids. No alcohol until released. Warnings: Further evaluation is necessary in order to recheck abnormal lab, obtain test results, conduct further tests and assess the possibility of serious illness (You may need a treadmill test). It is very important to follow up with a physician. GENERAL WARNINGS: Return or contact your physician immediately if your condition worsens or changes unexpectedly, if not improving as expected, or if other problems arise. Your Current Medications: CONTINUE TAKING THE FOLLOWING MEDICATIONS: Insulin: Novalog*. Lantus Subcutaneous. [place] Oral. Wellbutrin Oral. Prescription Medications: Prilosec 20 mg capsules: Take 1 capsule orally once daily. Dispense fifteen (15). No refills. Substitution is permissible. OTC Medications: Take aspirin according to label instructions. Available over the counter. (daily dose = 325 mg) Follow-up: Follow up with your doctor [facility] tomorrow. ADDITIONAL INFORMATION Chest Pain, Uncertain Cause Chest pain can happen for a number of reasons. Sometimes the cause can not be determined. If yourcondition does not seem serious, and your pain does not appear to be coming from your heart, your doctor may recommend watching it closely. Sometimes the signs of a serious problem take more time to appear. Therefore, watch for the warning signs listed below. Home care After your visit, follow these recommendations: Rest today and avoid strenuous activity. Take any prescribed medicine as directed. Follow-up care Follow up with your doctor or this facility as instructed or if you do not start to feel better within 24 hours. Call 911 Get immediate medical attention if any of the following occur: A change in the type of pain: if it feels different, becomes more severe, lasts longer, or begins to spread into your shoulder, arm, neck, jaw or back Shortness of breath or increased pain with breathing Weakness, dizziness, or fainting Rapid heart beat Get prompt medical attention Call your doctor right away if any of the following occur: Cough with dark colored sputum (phlegm) or blood Fever of 100.4F(38C) or higher, or as directed by your health care provider Swelling, pain or redness in one leg Omeprazole Magnesium Gastro-resistant tablet What is this medicine? OMEPRAZOLE (oh ME pray zol) prevents the production of acid in the stomach. It is used to treat the symptoms of heartburn. You can buy this medicine without a prescription. This product is not for long-term use, unless otherwise directed by your doctor or health clinical care leader. How should I use this medicine? Take this medicine by mouth. Follow the directions on the product label. If you are taking this medicine without a prescription, take one tablet every day. Do not use for longer than 14 days or repeat a course of treatment more often than every 4 months unless directed by a doctor or healthcare professional. Take your dose at regular intervals every 24 hours. Swallow the tablet whole with a drink of water. Do not crush, break or chew. This medicine works best if taken on an empty stomach 30 minutes before breakfast. If you are using this medicine with the prescription of your doctor or healthcare professional, follow the directions you were given. Do not take your medicine more often than directed. Talk to your remote advisor regarding the use of this medicine in children. Special care may be needed. What side effects may I notice from receiving this medicine? Side effects that you should report to your doctor or health clinical care leader as soon as possible: allergic reactions like skin rash, itching or hives, swelling of the face, lips, or tongue bone, muscle or joint pain breathing problems chest pain or chest tightness dark yellow or brown urine diarrhea dizziness fast, irregular heartbeat feeling faint or lightheaded fever or sore throat muscle spasm palpitations redness, blistering, peeling or loosening of the skin, including inside the mouth seizures tremors unusual bleeding or bruising unusually weak or tired yellowing of the eyes or skin Side effects that usually do not require medical attention (Report these to your doctor or health clinical care leader if they continue or are bothersome.): constipation dry mouth headache loose stools nausea What may interact with this medicine? Do not take this medicine with any of the following medications: atazanavir clopidogrel nelfinavir This medicine may also interact with the following medications: ampicillin certain medicines for anxiety or sleep certain medicines that treat or prevent blood clots like warfarin cyclosporine diazepam digoxin disulfiram iron salts phenytoin prescription medicine for fungal or yeast infection like itraconazole, ketoconazole, voriconazole saquinavir tacrolimus What if I miss a dose? If you miss a dose, take it as soon as you can. If it is almost time for your next dose, take only that dose. Do not take double or extra doses. Where should I keep my medicine? Keep out of the reach of children. Store at room temperature between 20 and 25 degrees C (68 and 77 degrees F). Protect from light and moisture. Throw away any unused medicine after the expiration date. What should I tell my health care provider before I take this medicine? They need to know if you have any of these conditions: black or bloody stools chest pain difficulty swallowing have had heartburn for over 3 months have heartburn with dizziness, lightheadedness or sweating liver disease stomach pain unexplained weight loss vomiting with blood wheezing an unusual or allergic reaction to omeprazole, other medicines, foods, dyes, or preservatives or trying to get breast-feeding What should I watch for while using this medicine? It can take several days before your heartburn gets better. Check with your doctor or health clinical care leader if your condition does not start to get better, or if it gets worse. Do not treat diarrhea with over the counter products. Contact your doctor if you have diarrhea that lasts more than 2 days or if it is severe and watery. Do not treat yourself for heartburn with this medicine for more than 14 days in a row. You should only use this medicine for a 2-week treatment period once every 4 months. If your symptoms return shortly after your therapy is complete, or within the 4 month time frame, call your doctor or health clinical care leader. You have been given the following additional information: Chest Pain, Uncertain Cause Omeprazole Magnesium Gastro-resistant tablet Rest. Do not work for two days. (Electronically signed by Thierry Chicas DO 10/23/2016 3:41)
--- NOTE | 2016-10-23 07:37 | DIAGNOSTIC IMAGING REPORT ---
PROCEDURE: XR CHEST 2 VIEW INDICATION: CHEST PAIN TECHNIQUE: Two views. COMPARISON: None. FINDINGS: The cardiomediastinal contour and central vasculature are within normal limits. The lungs are clear without focal consolidation, pleural effusion, or pneumothorax. The visualized osseous structures are intact. IMPRESSION: 1. Normal chest.
== END 2016-10-23 02:16 | disposition home or self-care (01) ==
LOC: ED SRH 23:38
DX: R07.89 Other chest pain (principal); E11.9 Type 2 diabetes mellitus without complications; Z79.4 Long term (current) use of insulin; Z79.899 Other long term (current) drug therapy; Z88.7 Allergy status to serum and vaccine; Z88.8 Allergy status to other drugs, medicaments and biological substances
CPT/HCPCS: 90004; 90074; 90100; 90616; 91320; 91556; 91589; 92530; 92610; 92720; 92760; 92761; 92762; 92763; 92764; 92765; 92766; 92767; 93070; 93140; 94060; 95059

== ENCOUNTER 2016-12-29 23:52 | Emergency (ER) | payer OTHER ==
--- NOTE | 2016-12-30 00:44 | DIAGNOSTIC IMAGING REPORT ---
PROCEDURE: XR TIBIA AND FIBULA - LEFT INDICATION: TRAUMA/INJURY TECHNIQUE: AP and lateral views. COMPARISON: None. FINDINGS: Osseous structures are normal. There is a 6 mm dystrophic calcification in the distal ventral subcutaneous tissues (incidental finding). IMPRESSION: 1. Negative left tibia and fibula.
--- NOTE | 2016-12-30 00:45 | DIAGNOSTIC IMAGING REPORT ---
PROCEDURE: XR FOOT 3 VIEWS - LEFT INDICATION: TRAUMA/INJURY TECHNIQUE: Three views. COMPARISON: None. FINDINGS: Osseous structures and joint spaces are normal. If an occult fracture is suspected clinically, follow-up examination in 10 - 14 days may be of assistance. IMPRESSION: 1. Negative left foot.
--- NOTE | 2016-12-30 01:33 | ED CLINICAL REPORT ---
Clinical Report - Physicians/Mid Levels [facility] [address] [place] [address] 12/29/2016 23:53 Patient: RADHA PICKETT Time Seen: 00:28. Arrived- By private vehicle. Historian- patient. HISTORY OF PRESENT ILLNESS Chief Complaint: Injury to left foot and leg. The injury happened last night. The patient sustained a direct blow (The patient dropped a 40 pound boxof soft drinks striking her left horn the top of her left foot.). Occurred at work. Patient is experiencing severe pain. No other injury. REVIEW OF SYSTEMS The patient complains of pain on weight bearing. She has had new onset of moderate swelling of the left lower leg. No weakness or numbness. All systems otherwise negative, except as recorded above. PAST HISTORY Problems: Atypical Chest Pain. Mental Illness. Diabetes Mellitus. Additional Surgeries: . Vaginal septum removal . Medications: Novalog insulin (sliding scale). Allergies: Flu Virus Vaccine. Metformin. SOCIAL HISTORY Never smoker. No alcohol use or drug use. FAMILY HISTORY No significant family medical history. ADDITIONAL NOTES The nursing notes have been reviewed. PHYSICAL EXAM Vital Signs: 12/30/2016 00:04 BP: 142/75. HR: 81. RR: 16. O2 saturation: 97%. Temp: 97.8 F. Pain level now: 8/10. Have been reviewed. Appearance: Alert. No acute distress. Head: Head atraumatic. Eyes: Pupils equal, round and reactive to light. ENT: Pharynx normal. Neck: Normal inspection. Neck supple. CVS: Normal heart rate and rhythm. Heart sounds normal. Respiratory: No respiratory distress. Breath sounds normal. Abdomen: No visible injury. Back: Normal inspection. ROM normal. Skin: Skin intact. Skin warm and dry. Extremities: Left leg: moderate tenderness, mild swelling and medium sized ecchymosis located in the anterior aspect of mid leg. Left foot: mild tenderness of the aspect of the foot. Neurovascular intact distally. No erythema, swelling, ecchymosis or deformity. Neuro, Vascular and Tendons: Vascular status intact. Sensation intact. Motor intact. Tendon function intact. Neuro: No motor deficit. No sensory deficit. LABS, X-RAYS, AND EKG Lt Tib/Fib X-ray: (IMPRESSION: 1. Negative left tibia and fibula.). The X-rays were interpreted by the radiologist and contemporaneously by me. Lt Foot X-ray: (IMPRESSION: 1. Negative left foot.). The X-rays were interpreted by the radiologist and contemporaneously by me. PROGRESS AND PROCEDURES Course of Care: Patient is stable. Patient/family counseled. Old medical records reviewed. Disposition: Discharged. Condition: stable. CLINICAL IMPRESSION Contusion to the left lower leg and left foot. INSTRUCTIONS Apply ice for 20 minutes four times a day until better. Don't apply ice directly to skin and don't use while asleep. You may walk and bear weight as tolerated. Warnings: GENERAL WARNINGS: Return or contact your physician immediately if your condition worsens or changes unexpectedly, if not improving as expected, or if other problems arise. OTC Medications: Motrin (available over the counter): take according to label instructions. Understanding of the discharge instructions verbalized by patient. (Electronically signed by Percy Linda MD 01/01/2017 10:20)
--- NOTE | 2016-12-30 01:33 | ED ORDER SUMMARY ---
..... Patient: RADHA PICKETT OrderSheet [facility] VisitID: [id number] [place] [address] 36y, F Registration Date/Time: 12/29/2016 ORDER SHEET Weight: 90.7 kg (stated) Allergies: Metformin, Flu Virus Vaccine GENERAL ORDERS: Tibia/Fibula Left Urgent (00:12/30/2016 Broderickiveyen R.N. per protocol) (Ack 0:22 LMuller) (0:28 GUnger) Foot 3V Left Urgent (00:13 12/30/2016 MatQuiveyen R.N. per protocol) (Ack 0:22 LMuller) (0:28 GUnger) MEDICATION ORDERS: IV FLUIDS: ORDER SHEET NOTES: [Electronically signed by Chivo Carmona R.N. (04:10 12/30/2016)] [Electronically signed by Percy Linda MD (10:20 01/01/2017)] [Electronically locked/signed by Chivo Carmona R.N. (04:12/30/2016)]
--- NOTE | 2016-12-30 01:33 | ED NURSING NOTES ---
Clinical Report - Nurses [facility] [place] [address] 12/29/2016 23:53 [id number] TRI[facility] Triage time 00:04. Acuity: LEVEL 4. Chief Complaint: INJURY TO THE LEFT LEG, LEFT ANKLE and LEFT FOOT. 00:11. Alert. SEPSIS SCREEN: Sepsis Screen. Negative (no infection suspected/documented). JOHN COMA SCORE: John Coma Scale: 15- eyes open spontaneously (4); best verbal response- oriented x 4 (5); best motor response- obeys commands (6). --00:11 Chivo Carmona R.N. 00:04 12/30/16. BP: 142/75. HR: 81. RR: 16. O2 saturation: 97%. Temp: 97.8 F (oral). Pain level now: 02/26. --00:11 Chivo Carmona R.N. Weight: 90.7 kg stated. Height/Length: 63 inches Per Patient. BMI: 35.4. --00:09 Chivo Carmona R.N. Medications Novalog insulin (sliding scale). --00:08 Chivo Carmona R.N. Medication/allergy information source: the patient. --00:11 Chivo Carmona R.N. Allergies Metformin. --00:08 Chivo Carmona R.N. Flu Virus Vaccine. --00:08 Chivo Carmona R.N. History Arrived by private vehicle. Historian: patient. Accompanied by family. Primary physician ([facility]). This occurred (about 1900). Occurred at work. Mechanism of injury: (Dropped 40lb box of Coca cola syrup on left leg/ foot). Treatment HOTEL FRONT OFFICE MANAGER: None. PAST MEDICAL HX: Tetanus status: up-to-date. Immunizations: up-to-date. Last normal menstrual period was 1 week ago. SOCIAL HX: Never smoker. No alcohol use or drug use. No infectious disease exposure. ABUSE ASSESSMENT: No report of abuse. FALL RISK ASSESSMENT: Fall risk assessment completed. No fall risk identified. NUTRITIONAL RISK ASSESSMENT: The nutritional risk assessment revealed no deficiencies. FUNCTIONAL ASSESSMENT: Functional assessment: no impairments noted. LEARNING NEEDS ASSESSMENT: The learning needs assessment revealed no barriers. SKIN INTEGRITY ASSESSMENT: Skin integrity risk assessment completed. No skin integrity risk identified. --00:11 Chivo Carmona R.N. PROBLEMS: Mental Illness. Diabetes Mellitus. --00:09 Chivo Carmona R.N. ADDITIONAL SURGERIES: . Vaginal septum removal . --00:09 Chivo Carmona R.N. Interventions ID band on patient. To treatment room. --00:11 Chivo Carmona R.N. PHYSICAL ASSESSMENT 00:12. To room via wheelchair. GENERAL / NEURO / PSYCH: Oriented X 4. Alert. EXTREMITIES: Neuro-vascular status intact to the extremity. Left leg: ecchymosis. SKIN: Skin intact. Skin is warm and dry. --00:12 Chivo Carmona R.N. NURSING PROGRESS NOTES 00:12. Warming measures: blanket applied. Two patient identifiers checked. Call light placed in reach. Bed placed in lowest position. Brakes of bed on. Patient ready for evaluation- chart flagged. --00:12 Chivo Carmona R.N. 00:20. Patient transported to radiology by wheelchair with tech. --00:35 Chivo Carmona R.N. 00:27. Patient returned from radiology by wheelchair with tech. --00:35 Chivo Carmona R.N. Extremities: Neuro-vascular status intact to the extremities. 01:38. The patient is calm and resting quietly. GENERAL / NEURO / PSYCH: Alert. Oriented X 4. RESPIRATORY: No respiratory distress. SKIN: Skin is warm and dry. --01:40 Chivo Carmona R.N. DISPOSITION / DISCHARGE Departure time: 01:40. Condition at departure: stable. No learning barriers present. Discharge instructions provided and reviewed with the patient, parent and family. Reviewed medication(s) side effects, precautions, dosing and course information. Prescription(s) given to the patient. Patient and parent verbalized understanding. Written instructions provided in Vietnamese. The patient was discharged home and accompanied by parent. She left the Emergency Department ambulatory and via private vehicle. Parent driving. FALL RISK ASSESSMENT: Fall risk assessment completed. No fall risk identified. --01:40 Chivo Carmona R.N. 01:37 12/30/16. BP: 138/96. HR: 93. RR: 16. O2 saturation: 99%. Pain level now: 09/26. --01:40 Chivo Carmona R.N. Locked/Released at 12/30/2016 4:10 by Chivo Carmona R.N.
--- NOTE | 2016-12-30 01:33 | ED ORDER SUMMARY ---
..... Patient: RADHA PICKETT OrderSheet [facility] VisitID: [id number] [place] [address] 36y, F Registration Date/Time: 12/29/2016 ORDER SHEET Weight: 90.7 kg (stated) Allergies: Metformin, Flu Virus Vaccine GENERAL ORDERS: Tibia/Fibula Left Urgent (00:12/30/2016 Broderickiveyen R.N. per protocol) (Ack 0:22 LMuller) (0:28 GUnger) Foot 3V Left Urgent (00:13 12/30/2016 MatQuiveyen R.N. per protocol) (Ack 0:22 LMuller) (0:28 GUnger) MEDICATION ORDERS: IV FLUIDS: ORDER SHEET NOTES: [Electronically signed by Chivo Carmona R.N. (04:10 12/30/2016)] [Electronically signed by Percy Linda MD (10:20 01/01/2017)] [Electronically locked/signed by Chivo Carmona R.N. (04:12/30/2016)]
--- NOTE | 2016-12-30 01:33 | ED CLINICAL REPORT ---
Clinical Report - Physicians/Mid Levels [facility] [address] [place] [address] 12/29/2016 23:53 Patient: RADHA PICKETT Time Seen: 00:28. Arrived- By private vehicle. Historian- patient. HISTORY OF PRESENT ILLNESS Chief Complaint: Injury to left foot and leg. The injury happened last night. The patient sustained a direct blow (The patient dropped a 40 pound boxof soft drinks striking her left horn the top of her left foot.). Occurred at work. Patient is experiencing severe pain. No other injury. REVIEW OF SYSTEMS The patient complains of pain on weight bearing. She has had new onset of moderate swelling of the left lower leg. No weakness or numbness. All systems otherwise negative, except as recorded above. PAST HISTORY Problems: Atypical Chest Pain. Mental Illness. Diabetes Mellitus. Additional Surgeries: . Vaginal septum removal . Medications: Novalog insulin (sliding scale). Allergies: Flu Virus Vaccine. Metformin. SOCIAL HISTORY Never smoker. No alcohol use or drug use. FAMILY HISTORY No significant family medical history. ADDITIONAL NOTES The nursing notes have been reviewed. PHYSICAL EXAM Vital Signs: 12/30/2016 00:04 BP: 142/75. HR: 81. RR: 16. O2 saturation: 97%. Temp: 97.8 F. Pain level now: 8/10. Have been reviewed. Appearance: Alert. No acute distress. Head: Head atraumatic. Eyes: Pupils equal, round and reactive to light. ENT: Pharynx normal. Neck: Normal inspection. Neck supple. CVS: Normal heart rate and rhythm. Heart sounds normal. Respiratory: No respiratory distress. Breath sounds normal. Abdomen: No visible injury. Back: Normal inspection. ROM normal. Skin: Skin intact. Skin warm and dry. Extremities: Left leg: moderate tenderness, mild swelling and medium sized ecchymosis located in the anterior aspect of mid leg. Left foot: mild tenderness of the aspect of the foot. Neurovascular intact distally. No erythema, swelling, ecchymosis or deformity. Neuro, Vascular and Tendons: Vascular status intact. Sensation intact. Motor intact. Tendon function intact. Neuro: No motor deficit. No sensory deficit. LABS, X-RAYS, AND EKG Lt Tib/Fib X-ray: (IMPRESSION: 1. Negative left tibia and fibula.). The X-rays were interpreted by the radiologist and contemporaneously by me. Lt Foot X-ray: (IMPRESSION: 1. Negative left foot.). The X-rays were interpreted by the radiologist and contemporaneously by me. PROGRESS AND PROCEDURES Course of Care: Patient is stable. Patient/family counseled. Old medical records reviewed. Disposition: Discharged. Condition: stable. CLINICAL IMPRESSION Contusion to the left lower leg and left foot. INSTRUCTIONS Apply ice for 20 minutes four times a day until better. Don't apply ice directly to skin and don't use while asleep. You may walk and bear weight as tolerated. Warnings: GENERAL WARNINGS: Return or contact your physician immediately if your condition worsens or changes unexpectedly, if not improving as expected, or if other problems arise. OTC Medications: Motrin (available over the counter): take according to label instructions. Understanding of the discharge instructions verbalized by patient. (Electronically signed by Percy Linda MD 01/01/2017 10:20)
--- NOTE | 2016-12-30 01:33 | ED NURSING NOTES ---
Clinical Report - Nurses [facility] [address] [address] 12/29/2016 23:53 [id number] TRI[facility] Triage time 00:04. Acuity: LEVEL 4. Chief Complaint: INJURY TO THE LEFT LEG, LEFT ANKLE and LEFT FOOT. 00:11. Alert. SEPSIS SCREEN: Sepsis Screen. Negative (no infection suspected/documented). JOHN COMA SCORE: John Coma Scale: 15- eyes open spontaneously (4); best verbal response- oriented x 4 (5); best motor response- obeys commands (6). --00:11 Chivo Carmona R.N. 00:04 12/30/16. BP: 142/75. HR: 81. RR: 16. O2 saturation: 97%. Temp: 97.8 F (oral). Pain level now: 02/26. --00:11 Chivo Carmona R.N. Weight: 90.7 kg stated. Height/Length: 63 inches Per Patient. BMI: 35.4. --00:09 Chivo Carmona R.N. Medications Novalog insulin (sliding scale). --00:08 Chivo Carmona R.N. Medication/allergy information source: the patient. --00:11 Chivo Carmona R.N. Allergies Metformin. --00:08 Chivo Carmona R.N. Flu Virus Vaccine. --00:08 Chivo Carmona R.N. History Arrived by private vehicle. Historian: patient. Accompanied by family. Primary physician ([facility]). This occurred (about 1900). Occurred at work. Mechanism of injury: (Dropped 40lb box of Coca cola syrup on left leg/ foot). Treatment BEHAVIORAL SPECIALIST: None. PAST MEDICAL HX: Tetanus status: up-to-date. Immunizations: up-to-date. Last normal menstrual period was 1 week ago. SOCIAL HX: Never smoker. No alcohol use or drug use. No infectious disease exposure. ABUSE ASSESSMENT: No report of abuse. FALL RISK ASSESSMENT: Fall risk assessment completed. No fall risk identified. NUTRITIONAL RISK ASSESSMENT: The nutritional risk assessment revealed no deficiencies. FUNCTIONAL ASSESSMENT: Functional assessment: no impairments noted. LEARNING NEEDS ASSESSMENT: The learning needs assessment revealed no barriers. SKIN INTEGRITY ASSESSMENT: Skin integrity risk assessment completed. No skin integrity risk identified. --00:11 Chivo Carmona R.N. PROBLEMS: Mental Illness. Diabetes Mellitus. --00:09 Chivo Carmona R.N. ADDITIONAL SURGERIES: . Vaginal septum removal . --00:09 Chivo Carmona R.N. Interventions ID band on patient. To treatment room. --00:11 Chivo Carmona R.N. PHYSICAL ASSESSMENT 00:12. To room via wheelchair. GENERAL / NEURO / PSYCH: Oriented X 4. Alert. EXTREMITIES: Neuro-vascular status intact to the extremity. Left leg: ecchymosis. SKIN: Skin intact. Skin is warm and dry. --00:12 Chivo Carmona R.N. NURSING PROGRESS NOTES 00:12. Warming measures: blanket applied. Two patient identifiers checked. Call light placed in reach. Bed placed in lowest position. Brakes of bed on. Patient ready for evaluation- chart flagged. --00:12 Chivo Carmona R.N. 00:20. Patient transported to radiology by wheelchair with tech. --00:35 Chivo Carmona R.N. 00:27. Patient returned from radiology by wheelchair with tech. --00:35 Chivo Carmona R.N. Extremities: Neuro-vascular status intact to the extremities. 01:38. The patient is calm and resting quietly. GENERAL / NEURO / PSYCH: Alert. Oriented X 4. RESPIRATORY: No respiratory distress. SKIN: Skin is warm and dry. --01:40 Chivo Carmona R.N. DISPOSITION / DISCHARGE Departure time: 01:40. Condition at departure: stable. No learning barriers present. Discharge instructions provided and reviewed with the patient, parent and family. Reviewed medication(s) side effects, precautions, dosing and course information. Prescription(s) given to the patient. Patient and parent verbalized understanding. Written instructions provided in Upper Sorbian. The patient was discharged home and accompanied by parent. She left the Emergency Department ambulatory and via private vehicle. Parent driving. FALL RISK ASSESSMENT: Fall risk assessment completed. No fall risk identified. --01:40 Chivo Carmona R.N. 01:37 12/30/16. BP: 138/96. HR: 93. RR: 16. O2 saturation: 99%. Pain level now: 09/26. --01:40 Chivo Carmona R.N. Locked/Released at 12/30/2016 4:10 by Chivo Carmona R.N.
--- NOTE | 2017-01-01 10:21 | ED MED RECONCILIATION SUMMARY ---
Patient: RADHA PICKETT Medication Reconciliation Report [facility] VisitID: [id number] [address] [place] [address] 36y, F Registration Date/Time: 12/29/2016 Weight: 90.7 kg Height/Length: 63 in. BMI: 35.4 ALLERGIES: Flu Virus Vaccine, Metformin The patient's Home Medications are listed below: THE FOLLOWING MEDICATIONS NEED TO BE RECONCILED: Novalog insulin , sliding scale The source(s) of the original Home Medication information: patient The following Medications were given to the patient in the Emergency Department: None. The following Medications were prescribed to the patient: Motrin (available over the counter): take according to label instructions. -- Percy Linda MD
--- NOTE | 2017-01-01 10:21 | ED MAR SUMMARY ---
..... Medication Administration Record [facility] [address] [place] [place], [place] [id number] Patient: RADHA PICKETT Visit ID: [id number] 36y, F Weight: 90.7 kg Height/Length: 63 in BMI: 35.4 ALLERGIES: Flu Virus Vaccine, Metformin
--- NOTE | 2017-01-01 10:21 | ED MED RECONCILIATION SUMMARY ---
Patient: RADHA PICKETT Medication Reconciliation Report [facility] VisitID: [id number] [address] [place] [address] 36y, F Registration Date/Time: 12/29/2016 Weight: 90.7 kg Height/Length: 63 in. BMI: 35.4 ALLERGIES: Flu Virus Vaccine, Metformin The patient's Home Medications are listed below: THE FOLLOWING MEDICATIONS NEED TO BE RECONCILED: Novalog insulin , sliding scale The source(s) of the original Home Medication information: patient The following Medications were given to the patient in the Emergency Department: None. The following Medications were prescribed to the patient: Motrin (available over the counter): take according to label instructions. -- Percy Linda MD
--- NOTE | 2017-01-01 10:21 | ED MAR SUMMARY ---
..... Medication Administration Record [facility] [address] [place], [place] [id number] Patient: RADHA PICKETT Visit ID: [id number] 36y, F Weight: 90.7 kg Height/Length: 63 in BMI: 35.4 ALLERGIES: Flu Virus Vaccine, Metformin
--- NOTE | 2017-01-01 10:21 | ED DISCHARGE INSTRUCTIONS ---
Patient: RADHA PICKETT General Instructions [facility] VisitID: [id number] [place] [address] 36y, F Registration Date/Time: 12/29/2016 Contusion to the left lower leg and left foot. INSTRUCTIONS Apply ice for 20 minutes four times a day until better. Don't apply ice directly to skin and don't use while asleep. You may walk and bear weight as tolerated. Warnings: GENERAL WARNINGS: Return or contact your physician immediately if your condition worsens or changes unexpectedly, if not improving as expected, or if other problems arise. OTC Medications: Motrin (available over the counter): take according to label instructions. Understanding of the discharge instructions verbalized by patient. ADDITIONAL INFORMATION Contusion:Lower Extremity You have a CONTUSION of your LOWER extremity (leg, knee, ankle, foot, or toes). This causes local pain, swelling and sometimes bruising. There are no broken bones. This injury may take from a few days to a few weeks to heal. Home Care: 1) Keep your leg elevated to reduce pain and swelling. When sleeping, place a pillow under the injured leg. When sitting, support the injured leg so it is level with your waist. This is very important during the first 48 hours. 2) If CRUTCHES have been advised, do not bear full weight on the injured leg until you can do so without pain. You may return to sports when you are able to hop and run on the injured leg without pain. 3) Apply an ice pack (ice cubes in a plastic bag, wrapped in a towel) over the injured area for 20 minutes every 1-2 hours the first day for pain relief. Continue this 3-4 times a day until the pain and swelling goes away. 4) You may use acetaminophen (Tylenol) or ibuprofen (Motrin, Advil) to control pain, unless another pain medicine was prescribed. [ NOTE : If you have chronic liver or kidney disease or ever had a stomach ulcer or GI bleeding, talk with your doctor before using these medicines.] Follow Up with your doctor or this facility if you are not starting to improve within the next THREE days. [NOTE: If X-rays were taken, they will be reviewed by a radiologist. You will be notified of any new findings that may affect your care.] Get Prompt Medical Attention if any of the following occur: -- Pain or swelling increases -- Toes become cold, blue, numb or tingly -- Redness, warmth or drainage from the skin Ibuprofen Oral tablet What is this medicine? IBUPROFEN (eye BYOO proe fen) is a non-steroidal anti-inflammatory drug (NSAID). It is used for dental pain, fever, headaches or migraines, osteoarthritis, rheumatoid arthritis, or painful monthly periods. It can also relieve minor aches and pains caused by a cold, flu, or sore throat. How should I use this medicine? Take this medicine by mouth with a glass of water. Follow the directions on the prescription label. Take this medicine with food if your stomach gets upset. Try to not lie down for at least 10 minutes after you take the medicine. Take your medicine at regular intervals. Do not take your medicine more often than directed. A special MedGuide will be given to you by the pharmacist with each prescription and refill. Be sure to read this information carefully each time. Talk to your neuroscientist regarding the use of this medicine in children. Special care may be needed. What side effects may I notice from receiving this medicine? Side effects that you should report to your doctor or health health care facilities inspector as soon as possible: allergic reactions like skin rash, itching or hives, swelling of the face, lips, or tongue black or bloody stools, blood in the urine or in vomit breathing problems changes in vision chest pain general ill feeling or flu-like symptoms nausea or vomiting redness, blistering, peeling or loosening of the skin, including inside the mouth slurred speech or weakness on one side of the body stomach pain unexplained weight gain or swelling unusually weak or tired yellowing of eyes or skin Side effects that usually do not require medical attention (report to your doctor or health health care facilities inspector if they continue or are bothersome): constipation or diarrhea dizziness gas or heartburn stomach upset What may interact with this medicine? Do not take this medicine with any of the following medications: cidofovir ketorolac methotrexate pemetrexed This medicine may also interact with the following medications: alcohol aspirin diuretics lithium other drugs for inflammation like prednisone warfarin What if I miss a dose? If you miss a dose, take it as soon as you can. If it is almost time for your next dose, take only that dose. Do not take double or extra doses. Where should I keep my medicine? Keep out of the reach of children. Store at room temperature between 15 and 30 degrees C (59 and 86 degrees F). Keep container tightly closed. Throw away any unused medicine after the expiration date. What should I tell my health care provider before I take this medicine? They need to know if you have any of these conditions: asthma cigarette smoker drink more than 3 alcohol containing drinks a day heart disease or circulation problems such as heart failure or leg edema (fluid retention) high blood pressure kidney disease liver disease stomach bleeding or ulcers an unusual or allergic reaction to ibuprofen, aspirin, other NSAIDS, other medicines, foods, dyes, or preservatives or trying to get breast-feeding What should I watch for while using this medicine? Tell your doctor or healthcare professional if your symptoms do not start to get better or if they get worse. This medicine does not prevent heart attack or stroke. In fact, this medicine may increase the chance of a heart attack or stroke. The chance may increase with longer use of this medicine and in people who have heart disease. If you take aspirin to prevent heart attack or stroke, talk with your doctor or health health care facilities inspector. Do not take other medicines that contain aspirin, ibuprofen, or naproxen with this medicine. Side effects such as stomach upset, nausea, or ulcers may be more likely to occur. Many medicines available without a prescription should not be taken with this medicine. This medicine can cause ulcers and bleeding in the stomach and intestines at any time during treatment. Ulcers and bleeding can happen without warning symptoms and can cause . To reduce your risk, do not smoke cigarettes or drink alcohol while you are taking this medicine. You may get drowsy or dizzy. Do not drive, use machinery, or do anything that needs mental alertness until you know how this medicine affects you. Do not stand or sit up quickly, especially if you are an older patient. This reduces the risk of dizzy or fainting spells. This medicine can cause you to bleed more easily. Try to avoid damage to your teeth and gums when you brush or floss your teeth. You have been given the following additional information: Contusion, Lower Extremity Ibuprofen Oral tablet You may walk and bear weight as tolerated. (Electronically signed by Percy Linda MD 01/01/2017 10:20)
== END 2016-12-30 01:40 | disposition home or self-care (01) ==
LOC: ED SRH 23:52
DX: S90.32XA Contusion of left foot, initial encounter (principal); W20.8XXA Other cause of strike by thrown, projected or falling object, initial encounter; Y93.89 Activity, other specified; Y92.89 Other specified places as the place of occurrence of the external cause; Y99.0 Civilian activity done for income or pay; E11.9 Type 2 diabetes mellitus without complications; Z79.4 Long term (current) use of insulin; Z88.7 Allergy status to serum and vaccine; Z88.8 Allergy status to other drugs, medicaments and biological substances